=== PATIENT | female | born 1970 | race Hispanic/Latino ===

== ENCOUNTER → 2016-09-30 | Outpatient (CLI) | payer OTHER ==
[2016-09-30 07:12] LABS: BLOOD UREA NITROGEN 12 mg/dL (7-22); CALCIUM 9.6 mg/dL (8.7-10.7); EST GLOMERULAR FILTRATION > 60 (>60 ml/min/1.73m(2)); SERUM ALBUMIN 3.9 g/dL (3.5-4.8)
[2016-09-30 07:14] LABS: HEMOGLOBIN A1C 4.99 % (4.2-6.0)
[2016-09-30 07:51] LABS: FREE T4 (FREE THYROXINE) 0.98 ng/dL (0.93-1.71)
== END ==
LOC: LAB 06:50
PROVIDERS: ATTEND Nurse Practitioner Family
DX: R63.5 Abnormal weight gain (principal); R73.09 Other abnormal glucose; R14.3 Flatulence
CPT/HCPCS: 36415; 80053; 83036; 84439; 84443; 86376; 86800

== ENCOUNTER → 2016-10-05 | Outpatient (CLI) | payer OTHER ==
--- NOTE | 2016-10-05 21:14 | DI ---
PELVIC ULTRASOUND, 10/05/2016 9:53 AM Clinical History: Abnormal CT scan revealed an enlarged uterus. Previous Exam: None at this facility. Technique: Transabdominal and transvaginal scans are performed. The uterus is retroflexed and measures approximately 40 x 45 x 95 mm. The uterus is unremarkable in t he central uterine stripe measures 8 mm.. There is a large 17 mm diameter nabothian cyst with a small er 8mm adjacent cysts. The right ovary has a 15 mm simple cyst. The left ovary is normal. Both ovarie s demonstrate normal perfusion. There are no fluid collections or masses. Readin. The uterus is retroflexed but otherwise unremarkable. There is a large 17 mm nabothian cyst in th e cervix. 2. There is a 15 mm simple cyst of the right ovary. Both ovaries are otherwise unremarkable.
== END ==
LOC: US 09:49
PROVIDERS: ATTEND Obstetrics & Gynecology
DX: N85.2 Hypertrophy of uterus (principal); N83.201 Unspecified ovarian cyst, right side
CPT/HCPCS: 76830; 76856

== ENCOUNTER → 2017-01-23 | Outpatient (CLI) | payer OTHER ==
--- NOTE | 2017-01-24 13:59 | DI ---
History: Low back pain left side Comparison: March 22, 2013 Findings: There is no abnormal marrow signal. Conus medullaris is normal in position at the level of L1 Cauda equina is normal. T12-L1: No stenosis or foraminal narrowing. L1-2: No stenosis or foraminal narrowing. Mild degenerative changes of facet joints L2-3: No stenosis or foraminal narrowing. L3-4: Moderate degenerative changes in facet joints. There is slight impression upon the thecal sac b y the hypertrophic facet joints, but there is no subsequent stenosis. Neuroforamina are widely patent bilaterally. L4-5: Mild to moderate degenerative changes in the facet joints. No stenosis or foraminal narrowing L5-S1: Broad-based posterior disc bulge impressing slightly upon the thecal sac. There is slight encr oachment into the right neural foramen resulting in mild right foraminal narrowing.There are mild-to- moderate degenerative changes of facet joints. No spinal stenosis there are no focal disc herniations. Comparison with the MRI performed in March of 2013 demonstrates slight progression of degenerative changes of facet joints, but otherwise no significant changes. Impression Degenerative changes in facet joints from the level of L3-4 to the level of L5-S1. Mild narrowing the right neural foramen at the level of L5-S1 secondary to broad-based posterior disc bulge. No focal disc herniation. No spinal stenosis.
== END ==
LOC: MRI 14:49
PROVIDERS: ATTEND Chiropractor
DX: M54.5 Low back pain (principal); M47.817 Spondylosis without myelopathy or radiculopathy, lumbosacral region
CPT/HCPCS: 72148

== ENCOUNTER → 2017-01-25 | Outpatient (CLI) | payer OTHER ==
--- NOTE | 2017-01-25 16:17 | DI ---
History: Low back pain Comparison: March 22, 2013 Findings: 4 mm anterolisthesis L5 on S1 demonstrated on the plain film study of March 22, 2013. No pars interarticularis defects are demonstrated. Vertebral body height and intervertebral disc spaces are maintained throughout the lumbar spine. No scoliosis Lumbar lordosis is normal SI joints unremarkable Impression: 4 mm anterolisthesis L5 on S1. If further evaluation is needed, flexion and extension images could be obtained to assess for stability
== END ==
LOC: RAD 15:04 → LAB 15:04
PROVIDERS: ATTEND Chiropractor
DX: M54.5 Low back pain (principal)
CPT/HCPCS: 72110